=== PATIENT | male | born 1955 | race Caucasian/White ===

== ENCOUNTER 2017-04-12 09:15 | Inpatient (IN) ==
[2017-04-12] MEDS ORDERED: NS 1,000 ML IV ONE ×2 (09:30→10:36)
[2017-04-12] MEDS ORDERED: NS 2,000 ML ONE (09:38)
[2017-04-12] MEDS ORDERED: LANOXIN ONE (09:44)
[2017-04-12 09:46] LABS: MANUAL DIFF NEEDED? NO
[2017-04-12] MEDS ORDERED: LANOXIN IV ONE (09:46)
[2017-04-12 09:49] LABS: BASO% 0.3 % (0.0-0.8); EOS# 0.01 X1000 (0.0-0.7); EOS% 0.1 % (0.0-10.0); HEMATOCRIT 35.9 % (42.0-52.0); HEMOGLOBIN 12.5 g/dL (14.0-18.0); IMM GRAN# 0.02 X1000 (0.0-0.04); IMM GRAN% 0.3 % (0.0-0.5); LYMPH# 2.35 X1000 (1.2-3.4); LYMPH% 30.4 % (20.5-51.1); MCHC 34.8 g/dL (33-37); MCV 94.7 FL (81-99); MONO# 0.48 X1000 (0.11-0.59); MONO% 6.2 % (1.7-9.3); MPV 9.9 FL (7.4-10.4); NEUT% 62.7 % (42.2-75.2); PLT 232 X1000 (130-400); RBC 3.79 XMIL (4.7-6.1)
[2017-04-12] MEDS ORDERED: LOPRESSOR ONE (09:54)
[2017-04-12] MEDS ORDERED: ZOFRAN IV ONE (10:02)
[2017-04-12] MEDS ORDERED: LOPRESSOR IV ONE (10:02)
[2017-04-12] MEDS ORDERED: ZOFRAN ONE (10:03)
--- NOTE | 2017-04-12 10:06 | EKG Report ---
Test Performed on : 04/12/2017 09:33:57 AM Test Reason : DIZZY/HX AFIB Blood Pressure : / mmHG Vent. Rate : 155 BPM Atrial Rate : 156 BPM P-R Int : 160 ms QRS Dur : 078 ms QT Int : 310 ms P-R-T Axes : 066 -36 080 degrees QTc Int : 498 ms Sinus tachycardia. Left axis deviation Abnormal ECG When compared with ECG of 11-SEP-2016 12:59, premature ventricular complexes. are no longer present T wave inversion no longer evident in Inferior leads T wave inversion less evident in Anterolateral leads Unconfirmed Result
[2017-04-12 10:23] LABS: AMYLASE 45 U/L (20-200); INR 0.96 (0.86-1.15); LIPASE 18 U/L (13-60); PROTIME 13.1 Seconds (12.1-15.5)
[2017-04-12 10:24] LABS: PTT PL 28.9 Seconds (22.6-43.9)
[2017-04-12 10:32] LABS: AGAP 20; ALBUMIN 3.4 g/dL (3.5-5.0); ALKALINE PHOSPHATASE 108 U/L (32-122); BUN 3 mg/dL (8-22); CALCIUM 8.3 mg/dL (8.8-10.2); CHLORIDE 92 mmol/L (98-107); CK PROFILE 47 U/L (24-204); COSMO 265; GOT 27 U/L (10-34); GPT 12 U/L (10-44); POTASSIUM 2.6 mmol/L (3.5-5.1); SODIUM 134 mmol/L (136-145); TCO2 23 mmol/L (25-35); TOTAL PROTEIN 6.5 g/dL (6.3-8.3)
[2017-04-12 10:33] LABS: MAGNESIUM 0.9 mg/dL (1.5-2.7)
[2017-04-12] MEDS ORDERED: NS 50 ML IV ONE (10:34)
[2017-04-12] MEDS ORDERED: MAGNESIUM SULFATE 2 GM/S.W.I. 2 GM/50 ML IVPB IV ONE (10:34)
--- NOTE | 2017-04-12 11:26 | EKG Report ---
Test Performed on : 04/12/2017 10:38:06 AM Test Reason : CHEST PAIN Blood Pressure : / mmHG Vent. Rate : 097 BPM Atrial Rate : 088 BPM P-R Int : 146 ms QRS Dur : 078 ms QT Int : 430 ms P-R-T Axes : 064 016 081 degrees QTc Int : 546 ms Sinus rhythm. with marked sinus arrhythmia. with occasional premature ventricular complexes. Prolonged QT Abnormal ECG When compared with ECG of 12-APR-2017 09:33, (Unconfirmed) premature ventricular complexes. are now present Vent. rate has decreased BY 58 BPM Unconfirmed Result
[2017-04-12 11:30] LABS: OCCULT BLOOD 1 NEGATIVE (NEGATIVE)
--- NOTE | 2017-04-12 11:31 | Diag Imaging Result Doc PS360 ---
EXAM: CHEST-PORTABLE INDICATION: CP TECHNIQUE: One view COMPARISON: 09/11/2016 FINDINGS: The lungs are grossly clear. There is no discrete pleural fluid collection or pneumothorax. The cardiomediastinal silhouette and central vasculature are grossly unremarkable. IMPRESSION: No evidence of acute pathology by plain radiograph. Electronically signed by Olayinka Mendoza 04/12/2017 11:29 AM
--- NOTE | 2017-04-12 13:54 | Diag Imaging Result Doc PS360 ---
EXAM: ANGIOGRAM/PULMONARY ARTERIES INDICATION: chest pain TECHNIQUE: COMPARISON: 09/13/2016 FINDINGS: There is no evidence of acute pulmonary embolism. There is a small thin linear defect seen in the right main pulmonary artery extending into a couple higher order branches. However, this is clearly not an acute pulmonary embolus. It was present on the previous study. This may be the result of an old distal pulmonary embolus with changes related to recannulization. There is aortic atherosclerotic disease with irregular plaques in mild patchy calcification. There is no evidence of aortic aneurysm or dissection. There are a few small calcified subcarinal and left hilar lymph nodes indicating prior granulomatous disease. There is no evidence of significant lymphadenopathy, otherwise. There is extensive pulmonary emphysema. There is dependent atelectasis at both lung bases, more prominent on the right. There is probably also an element of scarring. The lungs are grossly clear, otherwise. Limited views of the upper abdomen reveals diffuse hepatic steatosis. IMPRESSION: 1.Severe pulmonary emphysema. 2.Fairly mild bilateral dependent atelectasis and/or scarring. 3.No evidence of acute pulmonary embolism. 4.Other incidental/nonacute findings detailed above. Electronically signed by Olayinka Mendoza 04/12/2017 1:52 PM
[2017-04-12] MEDS: NICODERM PATCH TD SCH (17:18)
--- NOTE | 2017-04-12 18:38 | HISTORY AND PHYSICAL ---
Patient has no PCP. CHIEF COMPLAINT: Chest pain and dizziness. HISTORY OF PRESENT ILLNESS: This is a 61-year-old gentleman with a history of 2 previous heart attacks and stent placements after OH. He is noncompliant with his medication. He came in today complaining of atrial fibrillation, and noncompliance. He presented to the emergency room complaining of 1 week of dizziness and chest pain. He describes this pain as a central chest. States it feels like a squeezing cramping type pain. It has no radiation. It spontaneously appears and spontaneously resolves. Accompanying symptoms are dizziness, fatigue, nausea, shortness of breath, near-syncope and weakness. He does have a history of atrial paroxysmal atrial fibrillation being hospitalized in April as well as August 2016 for atrial fibrillation with rapid ventricular response. He was also found to have a an extensive right lower extremity DVT in August 2016. He has being discharged on cardiac medications as well as Eliquis and he states that he has filled none over the last 2 admissions. He does continue to smoke greater than 10 per day. He did state that he does have "some blood thinner I think" at home and that he takes 1 every now and then when his legs hurt. PAST MEDICAL HISTORY: 1. Atrial fibrillation paroxysmal. 2. CAD status post MIs. 3. Hypertension. 4. Hyperlipidemia. 5. Noncompliance with medication and M.D. followup. SOCIAL HISTORY: He drinks alcohol daily. He does partake in binge episodes. He was unclear on his last. He smokes 1-2 packs a day. ALLERGIES: No known drug allergies. HOME MEDICATIONS: None. REVIEW OF SYSTEMS: Discussed with patient with pertinent positives stated in the HPI. He also complains of black stools as well as red streaked stools. He is unclear on how frequent these are or how long this has been going on. He denies syncope, productive cough, PND, orthopnea, fever, chills, vomiting, dysuria, hematuria. PHYSICAL EXAMINATION: GENERAL: This is a 61-year-old male who is sitting in the bed, in no distress. VITAL SIGNS: Blood pressure is 168/74 with a heart rate of 100, respirations are 18, temperature is 97.9 degrees oral with oxygen saturations of 100% on room air. HEENT: Head is normocephalic, atraumatic. Pupils equal, round, react to light. EOMs are intact. Sclerae nonicteric. Mucous membranes are moist. NECK: Supple. Trachea midline. CARDIOVASCULAR: Irregular rate and rhythm. S1, S2 appreciated. No murmurs. PULMONARY: Breath sounds are clear. No increased work of breathing noted. Chest does rise and fall symmetrically with respiration. GASTROINTESTINAL: Abdomen is soft, nontender, nondistended with bowel sounds in all 4 quadrants. BACK: No CVAT. No spine tenderness. MUSCULOSKELETAL: Good range of motion of joints. EXTREMITIES: No clubbing, cyanosis, or edema. Calves are nontender. Pulses are palpable x4. NEUROLOGIC: He is alert and oriented x3 with cranial nerves 2-12 grossly intact. PERTINENT DATA: WBC is 7.7. His D-dimer is 2.82. Sodium was 136, potassium 2.6, BUN 3, creatinine 0.9, with a glucose of 98. Troponin is negative on multiple occasions. Blood alcohol is negative. Stool for occult blood was negative. CTA pulmonary revealed severe pulmonary emphysema, fairly mild bilateral dependent atelectasis and/or scarring. No evidence of acute pulmonary embolus. ASSESSMENT: 1. Chest pain. 2. Elevated D-dimer with a negative CTA pulmonary in a patient with known right lower extremity DVT. 3. History of right lower extremity DVT. 4. History of CAD, OH, status post PCI. 5. History of paroxysmal atrial fibrillation. 6. History of hypertension. 7. Tobacco use and abuse. 8. Alcohol use and abuse. 9. Hypokalemia. PLAN: He will be admitted to the hospital. He will be placed on telemetry. The patient states he takes no home medications. These were never filled. He is noted to be having a sinus tachycardia and occasionally has multifocal atrial tachycardia with rates staying in the 100-120s as of now. Will continue to monitor. We will consult Cardiology. At present, we can give no blood thinners as he reports having black as well as bloody stools. We will continue the Hemoccult. We will begin metoprolol p.o. His potassium is 2.6. We will replete and trend labs. Further treatments pending hospital course. Dictated by SUZY Alexander for Raymon Jovel MD cc: SUZY Alexander MD
[2017-04-12] MEDS: TOPROL XL PO SCH (18:40)
[2017-04-12] MEDS: POTASSIUM CHLORIDE 20 MEQ/SWI 20 MEQ/100 ML IVPB IV SCH ×2 (18:40→21:46)
[2017-04-12] MEDS: NS 1,000 ML IV SCH (18:45)
[2017-04-12] MEDS: PROTONIX PO SCH (21:46)
[2017-04-12 22:30] LABS: OCCULT BLOOD 1 NEGATIVE (NEGATIVE)
[2017-04-12] MEDS: NORCO-5 PO PRN (23:33)
[2017-04-13] MEDS: POTASSIUM CHLORIDE 20 MEQ/SWI 20 MEQ/100 ML IVPB IV SCH (02:20)
[2017-04-13] MEDS: NORCO-5 PO PRN ×3 (04:05→13:30)
[2017-04-13] MEDS: NS 1,000 ML IV SCH (04:44)
[2017-04-13] MEDS: PROTONIX PO SCH (05:59)
[2017-04-13 06:51] LABS: HEMATOCRIT 30.9 % (42.0-52.0); HEMOGLOBIN 10.2 g/dL (14.0-18.0); MCH 32.5 PG (27-31); MCV 98.4 FL (81-99); MPV 10.9 FL (7.4-10.4); RBC 3.14 XMIL (4.7-6.1)
[2017-04-13 07:14] LABS: AGAP 9; ALBUMIN 2.6 g/dL (3.5-5.0); ALKALINE PHOSPHATASE 99 U/L (32-122); BUN 6 mg/dL (8-22); CALCIUM 7.4 mg/dL (8.8-10.2); CHLORIDE 104 mmol/L (98-107); COSMO 275; GOT 17 U/L (10-34); GPT 10 U/L (10-44); POTASSIUM 3.2 mmol/L (3.5-5.1); SODIUM 139 mmol/L (136-145); TCO2 26 mmol/L (25-35); TOTAL PROTEIN 5.1 g/dL (6.3-8.3)
[2017-04-13] MEDS: TOPROL XL PO SCH (08:18)
[2017-04-13] MEDS: NICODERM PATCH TD SCH (08:18)
[2017-04-13] MEDS ORDERED: KLOR-CON PO ONE (08:43)
[2017-04-13] MEDS ORDERED: CALTRATE 600 + D PO SCH (09:00)
--- NOTE | 2017-04-13 09:32 | PROGRESS NOTE ---
DATE: 04/13/2017 SUBJECTIVE: The patient states he is feeling much better. He denies any chest pain or palpitations this morning. He denies any fevers or chills. He denies any cough or congestion. States he has been out of bed and has not been having the lightheaded and dizzy issues that he was having yesterday. Denies any further blood in the stool. States that he had a GI upset earlier in the week. He was having some nausea, vomiting, and diarrhea. States that is when he noticed blood in his stool. He has not had any since then. In fact, his test here was also negative. Notes that he is eating well. PHYSICAL EXAMINATION: Vital Signs: Temperature 98, pulse 89, respiratory rate 18, BP 162/97, and saturation 100% on 2 L. General: Patient is awake, alert, currently in no respiratory distress. He is lying flat in the bed. He is awake, alert, oriented. HEENT: Normocephalic, atraumatic. BR[place]GET[place]. Neck: Supple. CV: Regular rate. Chest: Relatively clear. Abdomen: Soft. Extremities: Moves all extremities. Neurologic: No changes. LABS: Hemoglobin and hematocrit 10 and 30. Potassium 3.2, calcium 7.4, albumin 2.6. ASSESSMENT: 1. Moderate protein calorie malnutrition. 2. Hypocalcemia. 3. Hypokalemia, improving. We will replace. 4. Elevated D-dimer in a patient with a negative CTA. He does not have a recent ultrasound. He has intentionally not been taking his Eliquis because he thought his blood clot was gone. He had a deep venous thrombosis in June. We will repeat a ultrasound. If his ultrasound is improving, we will not restart his Eliquis. 5. As noted, check an ultrasound of the lower extremities. Replace his potassium. Replace calcium. Hopefully home later this afternoon. cc: Raymon Jovel MD
--- NOTE | 2017-04-13 12:55 | Extremity Venous Study ---
EXAM: Venous U/S Bilateral Legs INDICATION: recent DVT/not taking Blood thinner TECHNIQUE: COMPARISON: 09/12/2016 FINDINGS: There is no discrete filling defects seen in the deep venous system of the right or left lower extremity. There is normal Doppler flow, compressibility, and augmentation involving the common femoral vein, superficial femoral vein, popliteal vein, posterior tibial vein, and peroneal veins, bilaterally. The great saphenous veins are grossly patent. There is an incidental 3 cm popliteal cyst on the left. IMPRESSION: 1.No evidence of deep venous thrombosis involving the right or left lower extremity. 2.Incidental popliteal cyst on the left. Electronically signed by Olayinka Mendoza 04/13/2017 12:52 PM
[2017-04-13 16:00] VITALS: BP 152/83
--- NOTE | 2017-04-13 18:33 | DISCHARGE SUMMARY ---
ADMISSION DATE: 04/12/2017 DISCHARGE DATE: 04/13/2017 DIAGNOSES: 1. Chest pain resolved. 2. Elevated D-dimer with a negative CTA in a patient with known right lower extremity deep venous thrombosis. 3. History of right lower extremity deep vein thrombosis. 4. History of coronary artery disease with myocardial infarction and percutaneous coronary intervention . 5. History of paroxysmal atrial fibrillation. 6. History of hypertension. 7. Tobacco use and abuse. 8. Alcohol use and abuse. 9. Hypokalemia resolved. 10. Reported black as well as bloody stools over the past year with Hemoccult negative on admission. DIAGNOSTICS: 1. 04/12/2017 chest x-ray revealed no evidence of acute pathology. 2. Pulmonary arteriogram revealed severe pulmonary emphysema, no evidence of acute pulmonary embolism. 3. Bilateral lower extremity Doppler revealed no evidence of deep vein thrombosis in the right or left lower extremity. An incidental popliteal cyst on the left. HOSPITAL COURSE: Mr. 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 On presentation to the emergency room he was alert and oriented. He was noted to have a heart rate in the 150s with sinus tach per EKG. He was given Lopressor and digoxin. Heart rate did decrease and he has remained in sinus rhythm 60s to 100 rate. He has had no further chest pain nor felt lightheaded or dizzy. Since admission to the hospital he has ambulated in the gutierrez and done well. He did state that he has had these symptoms over the last few weeks. He did state that he had blood in his stool in the emergency room. This was following episodes of vomiting and diarrhea earlier in the week. Stools were negative on admission. We did trend his electrolytes and replete as appropriate. DISCHARGE PHYSICAL EXAMINATION: Cardiovascular: Regular rate and rhythm. S1 and S2 appreciated. Pulmonary: Breath sounds are clear. No increased work of breathing noted. Gastrointestinal: Abdomen soft, nontender, nondistended with bowel sounds in all 4 quadrants. Extremities: No clubbing, cyanosis, or edema. Calves are nontender. Pulses are palpable x4. Neurologic: He is alert and oriented x3. Cranial nerves 2-12 grossly intact. DISCHARGE MEDICATIONS: None. The patient was noted to have a DVT in June for which she was discharged on Eliquis. The patient stated he has intentionally not been taking his Eliquis because he thought his blood clot was gone. Ultrasound and CTA were negative for PE/DVT therefore he will be discharged on no anticoagulation especially in the setting of reported bloody stools. FOLLOWUP: 1. He needs to follow up with Dr. Chen in Gastroenterology for evaluation of black stools. 2. Doctor Ray Awan in orthopedics regarding his left popliteal cyst. 3. His primary care physician in next 1-2 weeks. He is being discharged home in stable condition with friends. TIME SPENT: This is a greater than 30 minute discharge. Dictated by SUZY Alexander for Raymon Jovel MD cc: SUZY Alexander MD
--- NOTE | 2017-04-30 23:20 | PROVIDER DOCUMENTATION ---
This chart was entered by Tiana Owens Scribe, acting as scribe for Marcio Benton MD. HPI-Chest Pain - General Chief Complaint: Dizziness Stated Complaint: DIZZY, LEG PAIN,SOB Time Seen by Provider: 04/12/17 09:43 Source: patient Allergies/Adverse Reactions: Patient Allergies Allergy/AdvReac Type Severity Reaction Status Date / Time No Known Allergies Allergy Verified 09/11/16 12:48 - History of Present Illness-CP Nature of Presenting Problem: 61 year old male presents to the ER with complaint of dizziness and chest pain x one week. Pt has extensive cardiac history with 2 previous heart attacks and stent placements. Pt is non-complaint with medication. Today pt is complaining of dizziness, nausea, sob and chest pain. Pt also states he is having black stools and rectal bleeding. Location: reports: central Chest Pain Radiation: reports: no radiation Onset/Duration: 1 week ago Timing: still present Associated Symptoms: reports: dizziness, fatigue, nausea, shortness of breath, syncope, weakness Prior Chest Pain/Cardiac Workup: reports: heart attack Review of Systems - Adult - REVIEW OF SYSTEMS - ADULT Constitutional: denies: chills, fever Eyes: reports: no symptoms reported Ears, Nose, Mouth & Throat: reports: no symptoms reported Cardiovascular: reports: chest pain, irregular heart rate Respiratory: reports: shortness of breath Gastrointestinal: reports: nausea, rectal bleeding Genitourinary: reports: no symptoms reported Musculoskeletal: reports: no symptoms reported Integumentary: reports: no symptoms reported Neurological: reports: dizziness/vertigo, syncope Psychiatric: reports: no symptoms reported Endocrine: reports: no symptoms reported Hematologic/Lymphatic: reports: no symptoms reported Allergic/Immunologic: reports: no symptoms reported All Other Systems: Reviewed and Negative Past History - Adult - PAST MEDICAL HISTORY-ADULT Review of Records: reports: Nursing Assessment Review, Medications Reviewed Major Childhood Illnesses: reports: denies history Cardiovascular: reports: HTN, hyperlipidemia, CT Respiratory: reports: denies history Gastrointestinal: reports: denies history Obstetrical/Gynecological: reports: denies history Genitourinary: reports: denies history Musculoskeletal: reports: denies history Neurological: reports: CVA Endocrine/Immune: reports: denies history Other Conditions: reports: denies history - PRIOR SURGERIES/PROCEDURES Surgical/Procedure History: reports: cardiac stent, hernia repair, joint replacement (total knee ), other (knee surgery) - PRIOR HOSPITALIZATIONS Prior Hospitalizations: reports: for similar symptoms - IMMUNIZATION STATUS Childhood Immunizations: See Nurse Assessment Flu Vaccine: See Nurse Assessment - FAMILY HISTORY Family History: reviewed, not pertinent Physical Exam-General - CONSTITUTIONAL General Appearance: alert, no apparent distress - EYES Eyes: PERRL/EOMI, pink conjunctivae - HEAD, EARS, NOSE, MOUTH & THROAT HENMT: normocephalic/atraumatic, moist mucous membranes - NECK Neck: supple, normal inspection - RESPIRATORY Respiratory: rhonchi, increased rate - CARDIOVASCULAR Cardiovascular: tachycardia - MUSCULOSKELETAL Back Exam: no CVA tenderness, no vertebral tenderness Extremity: non-tender, normal inspection - SKIN Integumentary: warm/dry - NEUROLOGIC Neurologic: grossly normal, no motor/sensory deficits - PSYCHIATRIC Psych/Mental Status: normal mood/affect, normal thought content, normal thought process Progress - PLAN OF CARE/RESULTS Progress/Plan/Lab Results: Orders Category Date Time Status Admit - [facility] Routine AdmDCTranf 04/12/17 11:02 Ordered Cardiac Monitoring DIRECTED Care 04/12/17 09:26 Completed Saline Loc NOW Care 04/12/17 09:26 Completed CHEST-PORTABLE [RAD] Stat Exams 04/12/17 09:26 Completed AMYLASE [CHEM] Stat Lab 04/12/17 09:40 Completed CBC WITH ELECTRONIC DIFF [HEME] Stat Lab 04/12/17 09:40 Completed CK PROFILE [SP CHEM] Stat Lab 04/12/17 09:40 Completed COMPREHENSIVE METABOLIC PANEL [CHEM] Stat Lab 04/12/17 09:40 Completed D-DIMER PL [COAG] Stat Lab 04/12/17 09:40 Completed LIPASE [CHEM] Stat Lab 04/12/17 09:40 Completed MAGNESIUM [CHEM] Stat Lab 04/12/17 09:40 Completed OCCULT BLOOD SCREEN STOOL PL Stat Lab 04/12/17 11:24 Completed PRO B-NATRIURETIC PEPTIDE Stat Lab 04/12/17 09:40 Completed PROTIME WITH INR PL [COAG] Stat Lab 04/12/17 09:[address] [COAG] Stat Lab 04/12/17 09:40 Completed TROPONIN T Stat Lab 04/12/17 09:40 Completed TYPE & SCREEN [BBK] Stat Lab 04/12/17 09:40 Completed 0.9% Sodium Chloride Inj [Ns] 1,000 ml Med 04/12/17 09:38 Discontinued .ROUTE As Directed 0.9% Sodium Chloride Inj [Ns] 1,000 ml Med 04/12/17 10:36 Discontinued IV 50 mls/hr 0.9% Sodium Chloride Inj [Ns] 1,000 ml Med 04/12/17 09:30 Discontinued IV 999 mls/hr 0.9% Sodium Chloride Inj [Ns] 50 ml Med 04/12/17 10:34 Discontinued IV NOW Digoxin [Lanoxin] Med 04/12/17 09:46 Discontinued 250 microgm IV NOW ONE Digoxin [Lanoxin] Med 04/12/17 09:44 Discontinued 500 microgm .ROUTE .STK-MED ONE Magnesium Sulfate 2 gm/S.w.i. [Magnesium Sulfate 2 gm/S Med 04/12/17 10:34 Discontinued .w.i] 2 gm in 50 ml IV NOW Metoprolol [Lopressor] Med 04/12/17 09:54 Discontinued 5 mg .ROUTE .STK-MED ONE Metoprolol [Lopressor] Med 04/12/17 10:02 Discontinued 5 mg IV NOW ONE Ondansetron [Zofran] Med 04/12/17 10:03 Discontinued 4 mg .ROUTE .STK-MED ONE Ondansetron [Zofran] Med 04/12/17 10:02 Discontinued 4 mg IV NOW ONE EKG [EKG] Stat Ther 04/12/17 09:26 Draft EKG [EKG] Stat Ther 04/12/17 11:18 Draft Result Diagrams: 04/13/17 05:10 04/13/17 05:10 - EKG 1 Time of EKG reading by physician:: 10:10 EKG Read and Signed by:: Marcio Benton EKG Interpretation (*Must complete 3 of following elements*): Abnormal Rate: 155 Rhythm: sinus tachycardia [place]: left Comments: abnormal ECG 2 Time of EKG reading by physician:: 10:40 EKG Read and Signed by:: Marcio Benton EKG Interpretation (*Must complete 3 of following elements*): Abnormal Rate: 97 Rhythm: sinus rhythm with marked sinus arrhythmia with occasional premature ID Interval: prolonged Comments: abnormal ECG Departure - Departure Date of Disposition Decision: 04/12/17 Time of Disposition Decision: 11:10 DIAGNOSIS: Atrial fibrillation Qualifiers: Atrial fibrillation type: unspecified Qualified Code(s): I48.91 - Unspecified atrial fibrillation Disposition: ADMITTED INPATIENT 09 Certified Medical Emergency: Emergent Condition: Good - Critical Care Note This patient required my direct & personal management of CC.: No Attestation - Physician/ PAULINE Attestation The physician spent face to face time with patient:: Yes Advanced Practice Provider documentation review:: Supervising physician onsite and consulted in the evaluation and care of this patient. The physician did have a face to face encounter with the patient. This chart was documented by the indicated scribe, (Tiana Owens, Balaji) and accurately reflects the services I performed and decisions made by me, Marcio Benton MD, as attested by the provider's signature.
== END 2017-04-13 15:50 | disposition home or self-care (01) ==
LOC: P.ED 09:15 → EDIPHOLD 11:22 → P.MEDSURG 12:57
PROVIDERS: ATTEND Family Medicine

== ENCOUNTER 2018-12-15 10:46 | Inpatient (IN) ==
[2018-12-15] MEDS ORDERED: NS 1,000 ML IV ONE ×2 (11:47→12:48)
[2018-12-15 11:56] LABS: ESTIMATED GFR > 60; INR 0.9; PROTIME 12.6 Seconds (11.0-16.0)
[2018-12-15 11:57] LABS: PTT 24.8 Seconds (22.3-41.8)
[2018-12-15 11:58] LABS: BASO# 0.01 X1000 (0.0-0.2); BASO% 0.1 % (0.0-0.8); EOS# 0.01 X1000 (0.0-0.7); EOS% 0.1 % (0.0-10.0); HEMATOCRIT 40.4 % (42.0-52.0); HEMOGLOBIN 14.6 g/dL (14.0-18.0); IMM GRAN# 0.02 X1000 (0.0-0.04); IMM GRAN% 0.2 % (0.0-0.5); LYMPH# 1.25 X1000 (1.2-3.4); MCH 30.2 PG (27-31); MCHC 36.1 g/dL (33-37); MCV 83.6 FL (81-99); MONO# 0.42 X1000 (0.11-0.59); MONO% 4.7 % (1.7-9.3); MPV 13.2 FL (7.4-10.4); NEUT# 7.24 X1000 (1.4-6.5); NEUT% 80.9 % (42.2-75.2); PLT 57 X1000 (130-400); RBC 4.83 XMIL (4.7-6.1); RDW 14.8 % (11.5-14.5); WBC 8.95 X1000 (4.8-10.8)
[2018-12-15 12:01] LABS: ACETAMINOPHEN < 1.2 ug/mL (10-30); AGAP 16; ALBUMIN 4.2 g/dL (3.5-5.0); ALKALINE PHOSPHATASE 98 U/L (32-122); BUN 19 mg/dL (8-22); CALCIUM 9.1 mg/dL (8.8-10.2); CHLORIDE 78 mmol/L (98-107); COSMO 259; CREATININE 1.2 mg/dL (0.7-1.2); GLUCOSE 129 mg/dL (70-104); GOT 63 U/L (10-34); GPT 39 U/L (10-44); LIPASE 21 U/L (13-60); POTASSIUM 3.3 mmol/L (3.5-5.1); SALICYLATES < 3.00 mg/dL (3-10); SODIUM 127 mmol/L (136-145); TCO2 33 mmol/L (25-35); TOTAL PROTEIN 7.9 g/dL (6.3-8.3)
--- NOTE | 2018-12-15 12:37 | Diag Imaging Result Doc PS360 ---
CT HEAD W/O CONTRAST - 12/15/2018 INDICATION: syncope, alcoholic, unknown if seizure COMPARISON: 02/02/2018 FINDINGS: There is stable moderate, diffuse cerebral atrophy. No intracranial mass or hemorrhage. The skull is intact. The sinuses, mastoids, and middle ears are clear. IMPRESSION: Cerebral atrophy. No acute disease. This exam was performed using automated exposure control, adjustment of mA or kV according to patient size, and/or use of iterative reconstruction technique Electronically signed by Zia Coombs 12/15/2018 12:35 PM
--- NOTE | 2018-12-15 12:55 | Diag Imaging Result Doc PS360 ---
CHEST-2 VIEWS - 12/15/2018 INDICATION: syncope, alcoholic COMPARISON: None FINDINGS: The lungs are normally expanded and clear. Heart size and mediastinal contours are normal. No pneumothorax or pleural effusion. There are some stable mild compression deformities throughout the thoracic spine. IMPRESSION: Negative exam. Electronically signed by Zia Coombs 12/15/2018 12:53 PM
[2018-12-15 14:23] LABS: BILIRUBIN URINE NEGATIVE (NEGATIVE); BLOOD URINE NEGATIVE (NEGATIVE); CLARITY CLEAR (CLEAR); COLOR YELLOW; GLUCOSE URINE NEGATIVE (NEGATIVE); KETONE URINE NEGATIVE (NEGATIVE); LEUKOCYTES URINE NEGATIVE (NEGATIVE); NITRITE URINE NEGATIVE (NEGATIVE); PROTEIN URINE NEGATIVE (NEGATIVE); SP GRAVITY URINE 1.005; UROBILINOGEN URINE 4 mg/dL
[2018-12-15 14:30] LABS: URINE BACTERIA 1+ /HFP; URINE EPITHELIAL CELLS <10 /HPF (<10); URINE RBC <10 /HPF (<10); URINE SOURCE CLEAN CATCH; URINE WBC <10 /HPF (<10)
[2018-12-15 14:31] LABS: UR AMPHETAMINES QUAL NONE DETECTED (NONE DETECT); UR BARBITUATES QUAL NONE DETECTED (NONE DETECT); UR BENZODIAZEPIN QUAL NONE DETECTED (NONE DETECT); UR CANNABINOIDS QUAL NONE DETECTED (NONE DETECT); UR COCAINE QUAL NONE DETECTED (NONE DETECT); UR METHADONE QUAL NONE DETECTED (NONE DETECT); UR METHAMPHETAMINE QUAL NONE DETECTED (NONE DETECT); UR OPIATES QUAL NONE DETECTED (NONE DETECT); UR OXYCODONE QUAL NONE DETECTED (NONE DETECT); UR PCP QUAL NONE DETECTED (NONE DETECT); UR PROPOXYPHENE QUAL NONE DETECTED (NONE DETECT); UR TCA QUAL NONE DETECTED (NONE DETECT); URINE CAST NONE SEEN /LPF; URINE CRYSTAL NONE SEEN /HPF; URINE YEAST NONE SEEN /HPF
[2018-12-15] MEDS ORDERED: KLOR-CON PO ONE (14:48)
[2018-12-15] MEDS ORDERED: STERILE WATER INJ. ONE (15:50)
[2018-12-15] MEDS: PROTONIX IV SCH (16:08)
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
[2018-12-15] MEDS: ZITHROMAX 500 MG/NS 500 MG/250 ML IVPB IV SCH (16:15)
[2018-12-15] MEDS ORDERED: M.V.I.-12 10 ML, FOLIC ACID 1 MG, MAGNESIUM SULFATE 1 GM, THIAMINE 100 MG in NS 1,000 ML IV ONE (16:16)
[2018-12-15 16:37] LABS: UR CREAT RANDOM 51.4 mg/dL (14-26)
[2018-12-15 16:56] LABS: FREE T4 1.76 ng/dL (0.93-1.70)
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
[2018-12-15 17:55] LABS: ESTIMATED GFR > 60
[2018-12-15] MEDS: XARELTO PO SCH (18:07)
[2018-12-15] MEDS: NICODERM PATCH TD SCH (18:09)
[2018-12-15] MEDS: LIBRIUM PO SCH ×2 (18:09→23:52)
[2018-12-15] MEDS: M.V.I.-12 10 ML, FOLIC ACID 1 MG, MAGNESIUM SULFATE 1 GM, THIAMINE 100 MG in NS 1,000 ML IV SCH (18:09)
[2018-12-15] MEDS ORDERED: LEVOPHED 8 MG in D5 1/2 NS 250 ML IV SCH (18:15)
[2018-12-15 18:17] LABS: AGAP 14; ALBUMIN 3.3 g/dL (3.5-5.0); ALKALINE PHOSPHATASE 77 U/L (32-122); BUN 17 mg/dL (8-22); CHLORIDE 88 mmol/L (98-107); COSMO 261; GLUCOSE 72 mg/dL (70-104); GOT 52 U/L (10-34); GPT 30 U/L (10-44); POTASSIUM 3.3 mmol/L (3.5-5.1); SODIUM 130 mmol/L (136-145); TCO2 28 mmol/L (25-35); TOTAL PROTEIN 6.2 g/dL (6.3-8.3)
[2018-12-15] MEDS ORDERED: MAGNESIUM SULFATE 4 GM/S.W.I. 4 GM/100 ML IVPB IV ONE (18:17)
[2018-12-15 18:18] LABS: MAGNESIUM 0.9 mg/dL (1.5-2.7)
[2018-12-15] MEDS ORDERED: CARDIZEM 125/NS 125 MG/125 ML IVPB IV SCH (19:00)
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
[2018-12-16] MEDS: LIBRIUM PO SCH ×4 (04:03→23:56)
[2018-12-16 04:36] LABS: BASO# 0.02 X1000 (0.0-0.2); BASO% 0.3 % (0.0-0.8); EOS# 0.06 X1000 (0.0-0.7); HEMATOCRIT 35.9 % (42.0-52.0); HEMOGLOBIN 12.3 g/dL (14.0-18.0); IMM GRAN# 0.01 X1000 (0.0-0.04); IMM GRAN% 0.2 % (0.0-0.5); LYMPH# 1.43 X1000 (1.2-3.4); LYMPH% 24.3 % (20.5-51.1); MCH 29.6 PG (27-31); MCHC 34.3 g/dL (33-37); MCV 86.5 FL (81-99); MONO# 0.58 X1000 (0.11-0.59); MONO% 9.9 % (1.7-9.3); MPV 11.4 FL (7.4-10.4); NEUT# 3.78 X1000 (1.4-6.5); NEUT% 64.3 % (42.2-75.2); PLT 40 X1000 (130-400); RBC 4.15 XMIL (4.7-6.1); RDW 14.9 % (11.5-14.5); WBC 5.88 X1000 (4.8-10.8)
[2018-12-16 04:51] LABS: AGAP 10; ALBUMIN 3.4 g/dL (3.5-5.0); ALKALINE PHOSPHATASE 86 U/L (32-122); BUN 14 mg/dL (8-22); CALCIUM 8.4 mg/dL (8.8-10.2); CHLORIDE 94 mmol/L (98-107); COSMO 271; CREATININE 0.9 mg/dL (0.7-1.2); ESTIMATED GFR > 60; GLUCOSE 99 mg/dL (70-104); GOT 48 U/L (10-34); GPT 27 U/L (10-44); HEMOGLOBIN A1C 4.5 % (4.8-6.0); POTASSIUM 3.3 mmol/L (3.5-5.1); SODIUM 135 mmol/L (136-145); TCO2 32 mmol/L (25-35); TOTAL PROTEIN 5.9 g/dL (6.3-8.3)
[2018-12-16] MEDS ORDERED: KLOR-CON PO ONE (06:36)
[2018-12-16] MEDS: M.V.I.-12 10 ML, FOLIC ACID 1 MG, MAGNESIUM SULFATE 1 GM, THIAMINE 100 MG in NS 1,000 ML IV SCH (09:55)
[2018-12-16] MEDS: NICODERM PATCH TD SCH (11:22)
[2018-12-16] MEDS ORDERED: KLOR-CON ONE (11:24)
--- NOTE | 2018-12-16 14:52 | EKG Report ---
Test Performed on : 12/15/2018 11:48:52 AM Test Reason : syncope Blood Pressure : / mmHG Vent. Rate : 135 BPM Atrial Rate : 156 BPM P-R Int : 192 ms QRS Dur : 074 ms QT Int : 308 ms P-R-T Axes : 072 -46 040 degrees QTc Int : 462 ms Sinus tachycardia. Left axis deviation Inferior-posterior infarct (cited on or before 12-AUG-2018) Abnormal ECG When compared with ECG of 12-AUG-2018 00:31, premature atrial complexes. are no longer present Vent. rate has increased BY [address] no longer depressed in Inferior leads Unconfirmed Result
--- NOTE | 2018-12-16 14:53 | EKG Report ---
Test Performed on : 12/15/2018 3:29:23 PM Test Reason : afib eval Blood Pressure : / mmHG Vent. Rate : 115 BPM Atrial Rate : 138 BPM P-R Int : 146 ms QRS Dur : 084 ms QT Int : 380 ms P-R-T Axes : 065 -53 035 degrees QTc Int : 525 ms Sinus tachycardia. with premature atrial complexes. with aberrant conduction. Low voltage QRS Left anterior fascicular block Cannot rule out Inferior infarct (cited on or before 12-AUG-2018) Prolonged QT Abnormal ECG When compared with ECG of 15-DEC-2018 11:48, (Unconfirmed) aberrant conduction. is now present Nonspecific T wave abnormality now evident in Inferior leads Unconfirmed Result
[2018-12-16] MEDS: PROTONIX IV SCH (17:36)
[2018-12-16] MEDS: XARELTO PO SCH (17:36)
[2018-12-16] MEDS: ZITHROMAX 500 MG/NS 500 MG/250 ML IVPB IV SCH (17:36)
--- NOTE | 2018-12-16 22:39 | PROGRESS NOTE ---
DATE: 12/16/2018 SUBJECTIVE: The patient is still disoriented. Does not answer questions nor follow commands. PHYSICAL EXAMINATION: Vital signs: Temperature 97.6 degrees, pulse 85, respiratory 20, BP 102/67. General: The patient is currently in no respiratory distress. He appears back in sinus rhythm. HEENT: Normocephalic. Neck: Supple. Cardiovascular: Regular rate. No murmurs. Chest: Clear and nonlabored. Abdomen: Soft. Extremities: Moves all extremities. ASSESSMENT: 1. Syncope. 2. Questionable seizure activity. 3. Alcohol withdrawal. 4. Chronic alcoholism with alcohol dependence. 5. Mild chronic obstructive pulmonary disease. 6. Paroxysmal atrial fibrillation, currently in sinus rhythm. 7. Hypokalemia. 8. Hyponatremia. PLAN: The patient's potassium is still low, and we will replace. Magnesium is improved. We will continue high-dose Librium taper. Continue to follow his heart rate. Further orders as needed. cc: Raymon Jovel MD
[2018-12-17] MEDS: LIBRIUM PO SCH ×4 (04:53→17:36)
[2018-12-17] MEDS: XOPENEX NEB INH PRN ×2 (07:30→11:05)
[2018-12-17 07:45] LABS: HEMATOCRIT 36.4 % (42.0-52.0); HEMOGLOBIN 11.9 g/dL (14.0-18.0); MCH 29.2 PG (27-31); MCHC 32.7 g/dL (33-37); MCV 89.4 FL (81-99); MPV 11.8 FL (7.4-10.4); RBC 4.07 XMIL (4.7-6.1); RDW 15.6 % (11.5-14.5); WBC 4.66 X1000 (4.8-10.8)
[2018-12-17 07:51] LABS: AGAP 10; ALBUMIN 3.3 g/dL (3.5-5.0); ALKALINE PHOSPHATASE 103 U/L (32-122); BUN 13 mg/dL (8-22); CALCIUM 8.7 mg/dL (8.8-10.2); CHLORIDE 99 mmol/L (98-107); COSMO 277; CREATININE 0.7 mg/dL (0.7-1.2); ESTIMATED GFR > 60; GLUCOSE 95 mg/dL (70-104); GOT 29 U/L (10-34); GPT 23 U/L (10-44); MAGNESIUM 1.3 mg/dL (1.5-2.7); POTASSIUM 3.3 mmol/L (3.5-5.1); SODIUM 139 mmol/L (136-145); TCO2 29 mmol/L (25-35); TOTAL PROTEIN 5.7 g/dL (6.3-8.3)
[2018-12-17] MEDS: NICODERM PATCH TD SCH (09:12)
[2018-12-17] MEDS: M.V.I.-12 10 ML, FOLIC ACID 1 MG, MAGNESIUM SULFATE 1 GM, THIAMINE 100 MG in NS 1,000 ML IV SCH (09:12)
[2018-12-17] MEDS: ZITHROMAX 500 MG/NS 500 MG/250 ML IVPB IV SCH (15:13)
[2018-12-17] MEDS: SODIUM CHLORIDE 0.9% INJ SCH (15:13)
[2018-12-17] MEDS: PROTONIX IV SCH (15:13)
[2018-12-17] MEDS: XARELTO PO SCH (17:36)
[2018-12-17] MEDS: MAG-OX PO SCH (20:23)
[2018-12-17] MEDS: ATIVAN IV PRN (20:23)
--- NOTE | 2018-12-18 00:27 | PROGRESS NOTE ---
DATE: 12/17/2018 SUBJECTIVE: Patient has no new complaints. In fact, he is much more awake, alert. He denies any fevers, chills. States he is feeling better. PHYSICAL EXAMINATION: Vital Signs: Temperature 97.8 degrees, pulse 82, respiratory 18, BP 108/56 to 73/49, currently off of Levophed. HEENT: Normocephalic. Neck: Supple. Cardiovascular: Currently rate controlled. Abdomen: Soft, nondistended. Extremities: Moves all extremities. ASSESSMENT: 1. Hypotension, improved. 2. Syncope, appears improved. 3. Alcohol dependence and withdrawal, appears improved. 4. Chronic obstructive pulmonary disease with exacerbation, stable. 5. Hypokalemia. 6. Hypomagnesemia. PLAN: Continue patient in the hospital. Continue to wean Librium further orders as needed. Continue supportive care. Currently is off Cardizem as well as Levophed. cc: Raymon Jovel MD
[2018-12-18] MEDS: ATIVAN IV PRN (03:44)
[2018-12-18 07:10] LABS: HEMATOCRIT 32.9 % (42.0-52.0); HEMOGLOBIN 10.9 g/dL (14.0-18.0); MCH 29.5 PG (27-31); MCHC 33.1 g/dL (33-37); MCV 88.9 FL (81-99); MPV 12.2 FL (7.4-10.4); RBC 3.7 XMIL (4.7-6.1); RDW 15.3 % (11.5-14.5); WBC 4.87 X1000 (4.8-10.8)
[2018-12-18 07:27] LABS: AGAP 8; ALBUMIN 2.7 g/dL (3.5-5.0); ALKALINE PHOSPHATASE 104 U/L (32-122); BUN 11 mg/dL (8-22); CALCIUM 8.4 mg/dL (8.8-10.2); CHLORIDE 103 mmol/L (98-107); COSMO 276; CREATININE 0.6 mg/dL (0.7-1.2); ESTIMATED GFR > 60; GLUCOSE 114 mg/dL (70-104); GOT 17 U/L (10-34); GPT 15 U/L (10-44); MAGNESIUM 1.1 mg/dL (1.5-2.7); POTASSIUM 2.8 mmol/L (3.5-5.1); SODIUM 138 mmol/L (136-145); TCO2 28 mmol/L (25-35); TOTAL PROTEIN 5.5 g/dL (6.3-8.3)
[2018-12-18] MEDS: XOPENEX NEB INH PRN (08:09)
[2018-12-18] MEDS ORDERED: KLOR-CON PO ONE (09:07)
[2018-12-18] MEDS: M.V.I.-12 10 ML, FOLIC ACID 1 MG, MAGNESIUM SULFATE 1 GM, THIAMINE 100 MG in NS 1,000 ML IV SCH (09:57)
[2018-12-18] MEDS: CARDIZEM PO SCH ×2 (09:57→17:45)
[2018-12-18] MEDS: LIBRIUM PO SCH ×3 (09:57→16:35)
[2018-12-18] MEDS: MAG-OX PO SCH ×2 (09:57→20:23)
[2018-12-18] MEDS: NICODERM PATCH TD SCH (10:02)
[2018-12-18] MEDS: PROTONIX IV SCH (16:34)
[2018-12-18] MEDS: ZITHROMAX 500 MG/NS 500 MG/250 ML IVPB IV SCH (16:34)
[2018-12-18] MEDS: XARELTO PO SCH (16:35)
[2018-12-18] MEDS: SODIUM CHLORIDE 0.9% INJ SCH (16:35)
[2018-12-18] MEDS: NS 1,000 ML IV SCH (20:22)
--- NOTE | 2018-12-18 21:54 | PROGRESS NOTE ---
DATE: 12/18/2018 SUBJECTIVE: The patient this morning is a little disoriented and somnolent. He does arouse. He is attempting to eat breakfast by cutting his [place] toast, although he does not appear to have the strength to do this. OBJECTIVE: Temperature 98.4 degrees, pulse 99, respiratory rate 18, BP 107/64. General: The patient is arousable but then falls back asleep this morning. HEENT: Normocephalic. Neck supple. CV: Currently tachycardic. No murmurs. Chest clear. No wheezing. Nonlabored. Abdomen soft, nondistended. Extremities: Moves all extremities. ASSESSMENT: 1. Supraventricular tachycardia with intermittent atrial fibrillation. We will place the patient on Cardizem p.o. and we will follow. 2. Dementia. 3. Paroxysmal atrial fibrillation, appears improved. 4. Severe coronary artery disease, stable. 5. Nicotine dependence. 6. Hyperlipidemia. PLAN: We will continue the patient in the hospital. We will attempt to hold sedation. We have started him on Cardizem 30 p.o. b.i.d. and we will follow. We will hopefully hold his intravenous Cardizem. We will continue to follow his labs. Continue antibiotics. We will taper his Librium. cc: Raymon Jovel MD
[2018-12-19] MEDS: CARDIZEM PO SCH ×3 (01:23→17:54)
[2018-12-19] MEDS: NICODERM PATCH TD SCH (09:20)
[2018-12-19] MEDS: MAG-OX PO SCH ×2 (09:20→21:07)
[2018-12-19] MEDS: M.V.I.-12 10 ML, FOLIC ACID 1 MG, MAGNESIUM SULFATE 1 GM, THIAMINE 100 MG in NS 1,000 ML IV SCH (09:20)
[2018-12-19] MEDS: LIBRIUM PO SCH ×3 (09:20→17:54)
[2018-12-19] MEDS: NS 1,000 ML IV SCH (09:21)
[2018-12-19 11:26] LABS: HEMATOCRIT 29.3 % (42.0-52.0); HEMOGLOBIN 9.6 g/dL (14.0-18.0); MCH 29.4 PG (27-31); MCHC 32.8 g/dL (33-37); MCV 89.6 FL (81-99); MPV 10.3 FL (7.4-10.4); RBC 3.27 XMIL (4.7-6.1); RDW 15.6 % (11.5-14.5); WBC 3.96 X1000 (4.8-10.8)
[2018-12-19 11:33] LABS: AGAP 5; ALBUMIN 2.4 g/dL (3.5-5.0); ALKALINE PHOSPHATASE 80 U/L (32-122); BUN 10 mg/dL (8-22); CALCIUM 7.4 mg/dL (8.8-10.2); CHLORIDE 108 mmol/L (98-107); COSMO 274; CREATININE 0.5 mg/dL (0.7-1.2); ESTIMATED GFR > 60; GLUCOSE 85 mg/dL (70-104); GOT 13 U/L (10-34); GPT 12 U/L (10-44); MAGNESIUM 1.3 mg/dL (1.5-2.7); POTASSIUM 3.7 mmol/L (3.5-5.1); SODIUM 138 mmol/L (136-145); TCO2 25 mmol/L (25-35); TOTAL PROTEIN 5.1 g/dL (6.3-8.3)
[2018-12-19] MEDS: PROTONIX IV SCH (15:01)
[2018-12-19] MEDS: ZITHROMAX 500 MG/NS 500 MG/250 ML IVPB IV SCH (15:01)
[2018-12-19] MEDS: XARELTO PO SCH (17:54)
--- NOTE | 2018-12-19 18:23 | PROGRESS NOTE ---
DATE: 12/19/2018 SUBJECTIVE: The patient overall notes that he is feeling better. He is much more awake and alert this morning. He is eating breakfast. OBJECTIVE: Vital signs reviewed. Temperature 98 degrees, pulse 82, respiratory 18, BP 107/66. General: The patient is awake, alert. He is in no current respiratory distress. Very pleasant to talk with. He appears much more oriented than he has in the past few days. HEENT: Normocephalic. Neck supple. CV: Regular rate. No apparent murmurs. Chest clear, nonlabored. Abdomen is soft, nondistended, nontender. Extremities: Moves all extremities. ASSESSMENT: 1. Supraventricular tachycardia, much improved on Cardizem. 2. Syncope, appears resolved. 3. Alcohol dependence with withdrawal. Appears resolved. 4. Chronic obstructive pulmonary disease with exacerbation, improved. 5. Paroxysmal atrial fibrillation. He currently appears back in sinus rhythm with supraventricular tachycardia, but we will continue Cardizem as his heart rate was elevated once we stopped it. 6. Hypotension, improved. He has been off Levophed. 7. Lactic acidosis, resolved. 8. Hypokalemia, resolved. 9. Hyponatremia, resolved. PLAN: We will continue the patient in the hospital. We will continue Cardizem, transfer him to the floor, get Physical Therapy involved and will allow him to get up and move about. Further orders as needed. cc: Raymon Jovel MD
[2018-12-19] MEDS: ASPIRIN EC PO SCH (18:48)
[2018-12-19] MEDS ORDERED: ROBITUSSIN-DM PO PRN (21:47)
[2018-12-20] MEDS: CARDIZEM PO SCH ×3 (01:45→17:22)
[2018-12-20 07:15] LABS: AGAP 9; ALKALINE PHOSPHATASE 128 U/L (32-122); BUN 13 mg/dL (8-22); CALCIUM 8.2 mg/dL (8.8-10.2); CHLORIDE 107 mmol/L (98-107); COSMO 281; CREATININE 0.6 mg/dL (0.7-1.2); ESTIMATED GFR > 60; GLUCOSE 118 mg/dL (70-104); GOT 16 U/L (10-34); GPT 13 U/L (10-44); MAGNESIUM 1.3 mg/dL (1.5-2.7); POTASSIUM 3.6 mmol/L (3.5-5.1); SODIUM 140 mmol/L (136-145); TCO2 25 mmol/L (25-35); TOTAL PROTEIN 6.2 g/dL (6.3-8.3)
[2018-12-20 07:56] LABS: HEMATOCRIT 31.1 % (42.0-52.0); MCHC 32.2 g/dL (33-37); MCV 90.1 FL (81-99); MPV 10.6 FL (7.4-10.4); RBC 3.45 XMIL (4.7-6.1); RDW 15.9 % (11.5-14.5); WBC 4.44 X1000 (4.8-10.8)
[2018-12-20] MEDS: LIBRIUM PO SCH ×2 (08:17→21:58)
[2018-12-20] MEDS: MAG-OX PO SCH ×2 (08:17→21:58)
[2018-12-20] MEDS: ASPIRIN EC PO SCH (08:17)
[2018-12-20] MEDS: NICODERM PATCH TD SCH (08:17)
[2018-12-20] MEDS: M.V.I.-12 10 ML, FOLIC ACID 1 MG, MAGNESIUM SULFATE 1 GM, THIAMINE 100 MG in NS 1,000 ML IV SCH (08:53)
[2018-12-20] MEDS: PROTONIX IV SCH (17:21)
[2018-12-20] MEDS: XARELTO PO SCH (17:22)
--- NOTE | 2018-12-20 17:49 | PROGRESS NOTE ---
DATE: 12/20/2018 SUBJECTIVE: Patient has no complaints, notes that he is feeling a little bit better, still very weak. States he is feeling somewhat stronger though he has not been able to get out of bed without assistance. PHYSICAL: Temperature 97.5 degrees, pulse 94, respiratory 18, BP 145/81.General: Patient is awake, currently in no respiratory distress, he is pleasant talk with. HEENT: Normocephalic. Neck: Supple. CV: Regular rate. Chest: Clear. Abdomen: Soft. Extremities: Moves all extremities although generalized weakness. ASSESSMENT: 1. Atrial fibrillation currently back in sinus rhythm with rate control. 2. Generalized weakness. 3. Alcohol dependence and withdrawal. 4. Syncope secondary to alcohol withdrawal. 5. Hypokalemia. 6. Hypomagnesemia. Overall patient is better. We will continue him in the hospital, continue physical therapy, continue to wean his Librium. Certainly expect that he will need rehab upon discharge. cc: Raymon Jovel MD
[2018-12-21] MEDS: CARDIZEM PO SCH ×4 (02:13→19:11)
[2018-12-21] MEDS: XOPENEX NEB INH PRN ×2 (07:45→15:40)
[2018-12-21] MEDS: MAG-OX PO SCH ×2 (09:42→21:33)
[2018-12-21] MEDS: LIBRIUM PO SCH ×2 (09:42→21:34)
[2018-12-21] MEDS: ASPIRIN EC PO SCH (09:42)
[2018-12-21] MEDS: NICODERM PATCH TD SCH (09:42)
[2018-12-21] MEDS ORDERED: MAGNESIUM SULFATE 2 GM/S.W.I. 2 GM/50 ML IVPB IV ONE ×2 (10:46→17:57)
[2018-12-21] MEDS: PROTONIX PO SCH (11:30)
[2018-12-21] MEDS ORDERED: TUMS EXTRA STRENGTH PO PRN (16:25)
[2018-12-21] MEDS: XARELTO PO SCH (16:40)
--- NOTE | 2018-12-21 18:41 | PROGRESS NOTE ---
DATE: 12/21/2018 SUBJECTIVE: The patient has no major complaints. OBJECTIVE: Vital Signs: Blood pressure 132/64, heart rate 58, respiratory rate 18, temperature was 98.8 degrees, 100% on room air. Cardiovascular: Regular rate and rhythm. Pulmonary: Bilateral breath sounds. Clear to auscultation. GI: Soft, nontender, nondistended. Bowel sounds are positive. Neurologic: The patient is overall still very weak and tired. LABORATORY DATA: White count 4, hemoglobin and hematocrit 10 and 31, platelets 181,000. Basic was normal. PROBLEM LIST: 1. Syncope. He seems to be doing okay. 2. Atrial fibrillation. We will continue to follow. He is on anticoagulation. He is rate controlled. 3. Very weak, but that is likely related to hypomagnesemia. We will continue treatment. 4. Alcohol withdrawal. He is doing well from that perspective. DISPOSITION: Rehab is a very good option for him, but I do not think he qualifies for any inpatient rehab at this point, and I do not know if he will qualify for other issues, but we will see how things go. cc: Bala Huerta MD
[2018-12-21] MEDS: THIAMINE 100 MG in NS 50 ML IV SCH (21:34)
[2018-12-22] MEDS: CARDIZEM PO SCH ×4 (02:27→22:21)
[2018-12-22] MEDS: PROTONIX PO SCH (06:14)
[2018-12-22 07:25] LABS: BASO# 0.03 X1000 (0.0-0.2); BASO% 0.5 % (0.0-0.8); EOS# 0.05 X1000 (0.0-0.7); EOS% 0.8 % (0.0-10.0); HEMATOCRIT 30.5 % (42.0-52.0); HEMOGLOBIN 10.1 g/dL (14.0-18.0); IMM GRAN# 0.02 X1000 (0.0-0.04); IMM GRAN% 0.3 % (0.0-0.5); MCH 29.6 PG (27-31); MCHC 33.1 g/dL (33-37); MCV 89.4 FL (81-99); MONO# 0.93 X1000 (0.11-0.59); MONO% 15.7 % (1.7-9.3); MPV 10.5 FL (7.4-10.4); NEUT# 3.59 X1000 (1.4-6.5); NEUT% 60.7 % (42.2-75.2); PLT 277 X1000 (130-400); RBC 3.41 XMIL (4.7-6.1); WBC 5.92 X1000 (4.8-10.8)
[2018-12-22 07:37] LABS: AGAP 10; BUN 12 mg/dL (8-22); CALCIUM 8.3 mg/dL (8.8-10.2); CHLORIDE 103 mmol/L (98-107); COSMO 273; CREATININE 0.6 mg/dL (0.7-1.2); ESTIMATED GFR > 60; GLUCOSE 97 mg/dL (70-104); MAGNESIUM 1.8 mg/dL (1.5-2.7); PHOSPHORUS 4.8 mg/dL (2.7-4.5); POTASSIUM 4.8 mmol/L (3.5-5.1); SODIUM 137 mmol/L (136-145); TCO2 24 mmol/L (25-35)
[2018-12-22] MEDS: XOPENEX NEB INH PRN ×2 (07:55→21:43)
[2018-12-22] MEDS ORDERED: LIBRIUM PO SCH (09:00)
[2018-12-22] MEDS: ASPIRIN EC PO SCH (09:25)
[2018-12-22] MEDS: FOLIC ACID PO SCH (09:25)
[2018-12-22] MEDS: NICODERM PATCH TD SCH (09:25)
[2018-12-22] MEDS: MAG-OX PO SCH ×2 (09:26→22:21)
[2018-12-22] MEDS: THERA M PLUS PO SCH (09:26)
[2018-12-22] MEDS: XARELTO PO SCH (17:33)
--- NOTE | 2018-12-22 19:31 | PROGRESS NOTE ---
DATE: 12/22/2018 SUBJECTIVE: The patient is weak. OBJECTIVE: Vital Signs: Blood pressure is 123/75, heart rate of 104, respiratory rate of 20, temperature 99 degrees, 94% on room air. Cardiovascular: Regular rate and rhythm. Pulmonary: Bilateral breath sounds. Clear to auscultation. GI: Soft, nontender, nondistended. Bowel sounds are positive. LABORATORY DATA: Really unremarkable. His magnesium has finally stabilized. Hemoglobin and hematocrit are 10 and 30. PROBLEM LIST: 1. Syncope, with history of atrial fibrillation. He is stable. He is rate controlled and anticoagulated. 2. Severe chronic debilitation, likely due to chronic alcohol use. He seems to be stabilizing. 3. Hypomagnesemia. This has been supplemented and corrected. 4. Alcohol withdrawal syndrome. He is on a low dose of Librium. I will probably taper it one more day and then off. 5. Disposition. Waiting on him to get a little bit of strength back. The patient is stabilizing. Will have to go home. He does not have any inpatient rehabilitation options, from what I understand. Additionally, we will see how he does overall. There is a note documented today that he did 120 feet, but he states he only went from the bed to the door. I will discuss with Physical Therapy his progress tomorrow and we will see how he does. cc: Bala Huerta MD
[2018-12-22] MEDS: LIBRIUM PO SCH (22:21)
[2018-12-22] MEDS: THIAMINE 100 MG in NS 50 ML IV SCH ×2 (22:21→22:38)
[2018-12-23] MEDS: PROTONIX PO SCH (06:22)
[2018-12-23] MEDS: CARDIZEM PO SCH ×3 (06:22→20:31)
[2018-12-23 07:31] LABS: BASO# 0.04 X1000 (0.0-0.2); BASO% 0.7 % (0.0-0.8); EOS# 0.04 X1000 (0.0-0.7); EOS% 0.7 % (0.0-10.0); HEMATOCRIT 29.7 % (42.0-52.0); HEMOGLOBIN 9.6 g/dL (14.0-18.0); IMM GRAN# 0.03 X1000 (0.0-0.04); IMM GRAN% 0.5 % (0.0-0.5); LYMPH# 1.31 X1000 (1.2-3.4); LYMPH% 22.2 % (20.5-51.1); MCHC 32.3 g/dL (33-37); MCV 89.7 FL (81-99); MONO# 0.84 X1000 (0.11-0.59); MONO% 14.3 % (1.7-9.3); NEUT# 3.63 X1000 (1.4-6.5); NEUT% 61.6 % (42.2-75.2); PLT 308 X1000 (130-400); RBC 3.31 XMIL (4.7-6.1); RDW 15.9 % (11.5-14.5); RETIC% 1.26 % (0.8-2.1); RETIC-HE 29.1 PG (28.2-36.6); WBC 5.89 X1000 (4.8-10.8)
[2018-12-23 07:51] LABS: AGAP 9; BUN 13 mg/dL (8-22); CALCIUM 8.5 mg/dL (8.8-10.2); CHLORIDE 103 mmol/L (98-107); COSMO 276; CREATININE 0.8 mg/dL (0.7-1.2); ESTIMATED GFR > 60; GLUCOSE 96 mg/dL (70-104); IRON SATURATION 15 %; POTASSIUM 4.9 mmol/L (3.5-5.1); SODIUM 138 mmol/L (136-145); TCO2 26 mmol/L (25-35); TIBC 163 ug/dL; TOTAL IRON 24 ug/dL (53-167); UNBOUND IRON 139 ug/dL (112-346)
[2018-12-23] MEDS ORDERED: LIBRIUM PO SCH (09:00)
[2018-12-23] MEDS: ASPIRIN EC PO SCH (09:33)
[2018-12-23] MEDS: FOLIC ACID PO SCH (09:33)
[2018-12-23] MEDS: MAG-OX PO SCH ×2 (09:33→20:31)
[2018-12-23] MEDS: NICODERM PATCH TD SCH (09:33)
[2018-12-23] MEDS: THERA M PLUS PO SCH (09:33)
[2018-12-23] MEDS: LIBRIUM PO SCH (09:34)
[2018-12-23 14:33] LABS: FERRITIN 139 ng/mL (30-400)
--- NOTE | 2018-12-23 14:35 | PROGRESS NOTE ---
DATE: 12/23/2018 SUBJECTIVE: Patient has no major complaints. OBJECTIVE: Vital Signs: Blood pressure 125/77, heart rate 91, respiratory 18, temperature 98.1 degrees and 97% on room air. Cardiovascular: Regular rate and rhythm. Pulmonary: Bilateral breath sounds. Clear to auscultation. GI: Soft, nontender, and nondistended. Bowel sounds are positive. Psychiatric: He seems a little more confused today. LABORATORY DATA: White count is 5, hemoglobin and hematocrit 9 and 29, and platelets 308,000. Basic was normal. Iron is 24. Iron sat 15. PROBLEM LIST: 1. Syncope. 2. Atrial fibrillation is rate controlled. Anticoagulated. 3. Severe chronic debilitation. Chronic alcohol use and seems to be stable. 4. Alcohol withdrawal syndrome. We are tapering him off Librium. DISPOSITION: He did walk 120 feet yesterday with a walker with I guess some assistance. He is weak but much improved from a couple days ago so I think probably another day or 2 of rehab, and I think he probably will be able to go home. There is no outpatient resources although he has family members or friends that will assist him with getting him to PT. We will continue to follow closely. cc: Bala Huerta MD
[2018-12-23] MEDS: ICAR-C PO SCH (15:23)
[2018-12-23] MEDS: XARELTO PO SCH (18:11)
[2018-12-24] MEDS: CARDIZEM PO SCH ×4 (02:15→20:25)
[2018-12-24] MEDS: PROTONIX PO SCH (06:07)
[2018-12-24] MEDS ORDERED: LIBRIUM PO SCH (09:00)
[2018-12-24] MEDS: ICAR-C PO SCH (09:51)
[2018-12-24] MEDS: VITAMIN B-1 PO SCH (09:51)
[2018-12-24] MEDS: FOLIC ACID PO SCH (09:51)
[2018-12-24] MEDS: THERA M PLUS PO SCH (09:51)
[2018-12-24] MEDS: NICODERM PATCH TD SCH (09:52)
[2018-12-24] MEDS: MAG-OX PO SCH ×2 (09:52→20:25)
[2018-12-24] MEDS: ASPIRIN EC PO SCH (09:52)
[2018-12-24] MEDS: XARELTO PO SCH (17:24)
--- NOTE | 2018-12-25 04:01 | DISCHARGE SUMMARY ---
ADMISSION DATE: 12/15/2018 DISCHARGE DATE: ADDENDUM SUBJECTIVE: Patient has no major complaints. OBJECTIVE: Blood pressure is 110/71, heart rate of 100, respiratory rate 16, temperature 97.5 degrees, saturation 93% on room air. Cardiovascular: Regular rate and rhythm. Pulmonary: Bilateral breath sounds clear to auscultation. Gastrointestinal: Soft, nontender, nondistended. Bowel sounds are positive. Extremity: No clubbing or cyanosis. Lymphatic: No peripheral edema. Neurological: Nonfocal. LABORATORY DATA: Her white count is 5, hemoglobin and hematocrit 9 and 29, platelets 308,000. ASSESSMENT AND PLAN: 1. Atrial fibrillation, stable. Continue regular medications and follow. 2. Folic acid with anemia. We will continue supplementation and follow. 3. Thiamine deficiency, likely Wernicke's encephalopathy. We will continue thiamine. 4. Atrial fibrillation is rate controlled. We felt stable for discharge. He has been given Xarelto here. He does have a history of DVT, PE, although remotely or it has been over a year. I am a little bit concerned, although he has had atrial fibrillation, we will give him Eliquis to go home with at lower dose. I think he is a little bit concerning for me because I think he is a fall risk with his alcohol use and multiple issues. Anticipate discharge today, possibly in the next 24 hours. DISPOSITION: Pending, likely home today if stable. cc: Bala Huerta MD
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
[2018-12-25] MEDS: PROTONIX PO SCH (06:27)
[2018-12-25 08:07] VITALS: BP 95/72
[2018-12-25] MEDS: THERA M PLUS PO SCH (08:41)
[2018-12-25] MEDS: VITAMIN B-1 PO SCH (08:41)
[2018-12-25] MEDS: ASPIRIN EC PO SCH (08:41)
[2018-12-25] MEDS: ICAR-C PO SCH (08:41)
[2018-12-25] MEDS: MAG-OX PO SCH (08:42)
[2018-12-25] MEDS: FOLIC ACID PO SCH (08:42)
[2018-12-25] MEDS: NICODERM PATCH TD SCH (08:44)
[2018-12-25] MEDS ORDERED: CARDIZEM CD PO SCH (09:00)
== END 2018-12-25 08:51 | disposition home or self-care (01) | DRG 897 ==
LOC: P.ED 10:46 → P.ICU 16:40 → SUATTDRO 16:40 → P.MEDSURG 12-19 18:30
PROVIDERS: ATTEND Internal Medicine
CPT/HCPCS: 36415; 70450; 71020; 71046; 80048; 80053; 80104; 80196; 80301; 80305; 80307; 80320; 80324; 80329; 81001; 82003; 82055; 82150; 82550; 82570; 82607; 82728; 82746; 82948; 83036; 83540; 83550; 83605; 83690; 83735; 83935; 84100; 84300; 84439; 84484; 85025; 85027; 85045; 85610; 85730; 93005; 94640; 94761; 96361; 96365; 96375; 97163; 97166; 97530; 97535; 99285; A9270; C9113; G0431; G0434; G0477; G0480; G6038; G6039; G6040; J0456; J2060; J3411; J3475; J7030; S0164; XXXXX